=== PATIENT | female | born 1975 | race Caucasian/White ===

== ENCOUNTER 2018-12-15 10:37 | Inpatient (IN) | payer SELFPAY ==
[2018-12-15 11:08] LABS: BASOPHILS 0.1 % (0-2); EOSINOPHILS 2.4 % (0-7); HEMATOCRIT 36.8 % (36.0-48.0); IMMATURE GRANULOCYTES 0.5 % (0-5); LYMPHOCYTES 15.3 % (15-50); MCH 34.1 pg (26.0-34.0); MCHC 32.6 g/dL (31.0-37.0); MCV 104.5 fL (80.0-100.0); MONOCYTES 5.1 % (2-11); NEUTROPHILS 76.6 % (40-80); PLATELET COUNT 284 10x3/uL (130-400); RBC 3.52 10x6/uL (4.00-5.40); RDW 16.9 % (11.5-14.5); WBC 16.2 10x3/uL (4.8-10.8)
[2018-12-15 11:20] LABS: ALBUMIN 2.9 g/dL (3.4-5.0); ALKALINE PHOSPHATASE 134 U/L (46-116); ALT (SGPT) 57 U/L (10-68); BILIRUBIN - TOTAL 0.48 mg/dL (0.2-1.3); CALC OSMOLALITY 276 mosm/kg (275-300); CALCIUM 8.7 mg/dL (8.5-10.1); CARBON DIOXIDE 31.3 mmol/L (21.0-32.0); CHLORIDE - SERUM 103 mmol/L (98-107); CREATININE - SERUM 0.6 mg/dL (0.6-1.3); GLUCOSE 107 mg/dL (74-106); POTASSIUM - SERUM 3.6 mmol/L (3.5-5.1); PROTEIN - SERUM 7.4 g/dL (6.4-8.2); SODIUM 140 mmol/L (136-145); UREA NITROGEN 6 mg/dL (7-18); eGFR NON AFRICAN AMERICAN > 90 mL/min (90-120)
[2018-12-15 16:52] VITALS: BP 147/85
[2018-12-15 18:35] LABS: % SATURATION 10 % (15-55); IRON 39 ug/dl (35-150); TOTAL IRON BIND CAPACITY 372 ug/dl (260-445); UNSAT IRON BIND CAPACITY 333 ug/dl (150-375)
[2018-12-15 21:08] VITALS: BP 164/95
[2018-12-15 23:59] LABS: COLOR YELLOW (YELLOW)
[2018-12-16] VITALS (12 sets, daily range): BP systolic 113–153; BP diastolic 61–94; BMI 48.4
[2018-12-16] LABS: APPEARANCE CLEAR (CLEAR); BILIRUBIN NEGATIVE (NEGATIVE); GLUCOSE NEGATIVE (NEGATIVE); KETONE NEGATIVE (NEGATIVE); NITRITE NEGATIVE (NEGATIVE); PROTEIN NEGATIVE (NEGATIVE); UROBILINOGEN NORMAL (NORMAL)
[2018-12-16 04:18] LABS: BASOPHILS 0.2 % (0-2); EOSINOPHILS 3.4 % (0-7); HEMATOCRIT 33.4 % (36.0-48.0); HEMOGLOBIN 10.6 g/dL (12-16); IMMATURE GRANULOCYTES 0.4 % (0-5); LYMPHOCYTES 13.2 % (15-50); MCHC 31.7 g/dL (31.0-37.0); MEAN PLATELET VOLUME 9.7 fL (7.4-10.4); MONOCYTES 5.3 % (2-11); NEUTROPHILS 77.5 % (40-80); PLATELET COUNT 262 10x3/uL (130-400); RBC 3.12 10x6/uL (4.00-5.40); RDW 17.2 % (11.5-14.5); WBC 12.9 10x3/uL (4.8-10.8)
[2018-12-16 04:19] LABS: MCV 107.1 fL (80.0-100.0)
[2018-12-16 04:26] LABS: CALC OSMOLALITY 278 mosm/kg (275-300); CALCIUM 7.5 mg/dL (8.5-10.1); CHLORIDE - SERUM 106 mmol/L (98-107); CREATININE - SERUM 0.7 mg/dL (0.6-1.3); GLUCOSE 102 mg/dL (74-106); POTASSIUM - SERUM 3.7 mmol/L (3.5-5.1); SODIUM 141 mmol/L (136-145); UREA NITROGEN 6 mg/dL (7-18); eGFR NON AFRICAN AMERICAN > 90 mL/min (90-120)
--- NOTE | 2018-12-16 14:04 | OP ---
PATIENT NAME: ELIAZAR CALVO MEDICAL RECORD: [id number] :[birth year] LOCATION:[id number] ADMISSION DATE:12/15/18 SURGEON: BASHIR BENAVIDEZ MD DATE OF OPERATION: 12/16/2018 PREOPERATIVE DIAGNOSES: 1. Right axillary abscess. 2. Morbid obesity. POSTOPERATIVE DIAGNOSES: 1. Right axillary abscess. 2. Morbid obesity. PROCEDURE: I&D of the right axilla. SURGEON: Bashir Benavidez MD REPORT OF PROCEDURE: The patient's right axilla and upper extremity were prepped and draped in sterile fashion. A longitudinal incision was made over an area of fluctuance and there was immediately a discharge of purulent material. Cultures were taken times 2. I then penetrated this wound with my finger and we were able to find a track that ran deep towards the fascia and over towards an opening in the axilla and also another area that went inferiorly towards the skin. Both these areas were finger dissected and irrigated out with peroxide and saline solution. At the conclusion of the case, the return of fluid was clear with no signs of any further purulence. We then packed the wound with half inch packing strips that were dipped in peroxide. The wound was then dressed with 4 x 4s and tape. COMPLICATIONS: None. CONDITION: Stable. ANESTHESIA: General endotracheal. BLOOD LOSS: 30 mL. TRANSINT:[id number] Voice Confirmation ID: [id number] DOCUMENT ID: [id number] BASHIR BENAVIDEZ MD at 1404 CC: [id number] DICTATION DATE: 12/16/18 1108 BATTALION CHIEF: 12/16/18 1311 ADM IN [place] [id number] [place] [address]
[2018-12-17] VITALS: BP 138/71
[2018-12-17 03:00] VITALS: BP 131/63
[2018-12-17 08:43] VITALS: BP 142/75
[2018-12-17 13:50] VITALS: BP 145/82
[2018-12-17 14:27] LABS: BASOPHILS 0.2 % (0-2); EOSINOPHILS 1.1 % (0-7); HEMATOCRIT 32.9 % (36.0-48.0); HEMOGLOBIN 10.4 g/dL (12-16); IMMATURE GRANULOCYTES 0.8 % (0-5); LYMPHOCYTES 18.3 % (15-50); MCH 34.1 pg (26.0-34.0); MCHC 31.6 g/dL (31.0-37.0); MCV 107.9 fL (80.0-100.0); MONOCYTES 5.4 % (2-11); NEUTROPHILS 74.2 % (40-80); PLATELET COUNT 265 10x3/uL (130-400); RBC 3.05 10x6/uL (4.00-5.40); WBC 13.1 10x3/uL (4.8-10.8)
[2018-12-17 14:34] LABS: CALC OSMOLALITY 281 mosm/kg (275-300); CALCIUM 7.3 mg/dL (8.5-10.1); CARBON DIOXIDE 27.7 mmol/L (21.0-32.0); CHLORIDE - SERUM 105 mmol/L (98-107); CREATININE - SERUM 0.7 mg/dL (0.6-1.3); GLUCOSE 110 mg/dL (74-106); POTASSIUM - SERUM 3.2 mmol/L (3.5-5.1); SODIUM 142 mmol/L (136-145); eGFR NON AFRICAN AMERICAN > 90 mL/min (90-120)
[2018-12-17 14:35] LABS: UREA NITROGEN 8 mg/dL (7-18)
[2018-12-17 17:55] VITALS: BP 149/72
[2018-12-17 20:00] VITALS: BP 163/87
[2018-12-18] VITALS: BP 159/73
[2018-12-18 03:00] VITALS: BP 153/84
[2018-12-18 05:35] LABS: BASOPHILS 0.2 % (0-2); EOSINOPHILS 2.1 % (0-7); HEMATOCRIT 32.5 % (36.0-48.0); HEMOGLOBIN 10.2 g/dL (12-16); IMMATURE GRANULOCYTES 1.2 % (0-5); LYMPHOCYTES 20.5 % (15-50); MCHC 31.4 g/dL (31.0-37.0); MCV 108.3 fL (80.0-100.0); MEAN PLATELET VOLUME 9.7 fL (7.4-10.4); MONOCYTES 5.7 % (2-11); NEUTROPHILS 70.3 % (40-80); PLATELET COUNT 269 10x3/uL (130-400); RDW 17.4 % (11.5-14.5); WBC 11.8 10x3/uL (4.8-10.8)
[2018-12-18 05:45] LABS: CALC OSMOLALITY 277 mosm/kg (275-300); CALCIUM 7.3 mg/dL (8.5-10.1); CARBON DIOXIDE 27.8 mmol/L (21.0-32.0); CHLORIDE - SERUM 104 mmol/L (98-107); CREATININE - SERUM 0.6 mg/dL (0.6-1.3); GLUCOSE 122 mg/dL (74-106); POTASSIUM - SERUM 3.1 mmol/L (3.5-5.1); SODIUM 140 mmol/L (136-145); UREA NITROGEN 8 mg/dL (7-18); eGFR NON AFRICAN AMERICAN > 90 mL/min (90-120)
[2018-12-18 09:08] VITALS: BP 170/82
[2018-12-18 12:18] VITALS: BP 154/78
[2018-12-18 17:06] VITALS: BP 177/77
[2018-12-18 20:00] VITALS: BP 183/101
[2018-12-19] VITALS: BP 149/61
[2018-12-19 03:00] VITALS: BP 163/86
[2018-12-19 06:50] LABS: BASOPHILS 0.2 % (0-2); EOSINOPHILS 2.2 % (0-7); HEMATOCRIT 35.2 % (36.0-48.0); HEMOGLOBIN 11.4 g/dL (12-16); IMMATURE GRANULOCYTES 1.5 % (0-5); LYMPHOCYTES 18.2 % (15-50); MCH 34.8 pg (26.0-34.0); MCHC 32.4 g/dL (31.0-37.0); MCV 107.3 fL (80.0-100.0); MEAN PLATELET VOLUME 9.8 fL (7.4-10.4); MONOCYTES 6.5 % (2-11); NEUTROPHILS 71.4 % (40-80); PLATELET COUNT 320 10x3/uL (130-400); RBC 3.28 10x6/uL (4.00-5.40); RDW 17.5 % (11.5-14.5); WBC 11.5 10x3/uL (4.8-10.8)
[2018-12-19 07:00] LABS: CALC OSMOLALITY 280 mosm/kg (275-300); CALCIUM 7.6 mg/dL (8.5-10.1); CARBON DIOXIDE 30.7 mmol/L (21.0-32.0); CHLORIDE - SERUM 104 mmol/L (98-107); CREATININE - SERUM 0.7 mg/dL (0.6-1.3); GLUCOSE 108 mg/dL (74-106); POTASSIUM - SERUM 3.4 mmol/L (3.5-5.1); SODIUM 142 mmol/L (136-145); UREA NITROGEN 5 mg/dL (7-18); eGFR NON AFRICAN AMERICAN > 90 mL/min (90-120)
[2018-12-19 13:17] VITALS: BP 152/84
[2018-12-19 21:01] VITALS: BP 172/94
[2018-12-20 01:05] VITALS: BP 134/80
[2018-12-20 06:40] LABS: CALC OSMOLALITY 279 mosm/kg (275-300); CALCIUM 7.6 mg/dL (8.5-10.1); CARBON DIOXIDE 25.7 mmol/L (21.0-32.0); CHLORIDE - SERUM 106 mmol/L (98-107); CREATININE - SERUM 0.6 mg/dL (0.6-1.3); GLUCOSE 112 mg/dL (74-106); POTASSIUM - SERUM 3.6 mmol/L (3.5-5.1); SODIUM 141 mmol/L (136-145); UREA NITROGEN 6 mg/dL (7-18); eGFR NON AFRICAN AMERICAN > 90 mL/min (90-120)
[2018-12-20 07:04] LABS: BASOPHILS 0.3 % (0-2); EOSINOPHILS 3.1 % (0-7); HEMATOCRIT 32.6 % (36.0-48.0); HEMOGLOBIN 10.4 g/dL (12-16); LYMPHOCYTES 17.1 % (15-50); MCH 34.2 pg (26.0-34.0); MCHC 31.9 g/dL (31.0-37.0); MCV 107.2 fL (80.0-100.0); MEAN PLATELET VOLUME 10.1 fL (7.4-10.4); MONOCYTES 6.3 % (2-11); NEUTROPHILS 71.2 % (40-80); PLATELET COUNT 306 10x3/uL (130-400); RBC 3.04 10x6/uL (4.00-5.40); RDW 17.6 % (11.5-14.5); WBC 10.1 10x3/uL (4.8-10.8)
[2018-12-20 08:57] VITALS: BP 164/78
[2018-12-20 17:21] VITALS: BP 145/76
[2018-12-20 22:01] VITALS: BP 152/73
[2018-12-21 05:09] VITALS: BP 148/79
[2018-12-21 05:19] LABS: BASOPHILS 0.2 % (0-2); EOSINOPHILS 3.3 % (0-7); HEMATOCRIT 33.6 % (36.0-48.0); HEMOGLOBIN 10.5 g/dL (12-16); IMMATURE GRANULOCYTES 2.6 % (0-5); LYMPHOCYTES 15.2 % (15-50); MCH 33.7 pg (26.0-34.0); MCHC 31.3 g/dL (31.0-37.0); MCV 107.7 fL (80.0-100.0); MEAN PLATELET VOLUME 9.9 fL (7.4-10.4); MONOCYTES 6.2 % (2-11); NEUTROPHILS 72.5 % (40-80); PLATELET COUNT 332 10x3/uL (130-400); RBC 3.12 10x6/uL (4.00-5.40); RDW 17.9 % (11.5-14.5); WBC 10.7 10x3/uL (4.8-10.8)
[2018-12-21 05:35] LABS: CALC OSMOLALITY 280 mosm/kg (275-300); CALCIUM 8.1 mg/dL (8.5-10.1); CARBON DIOXIDE 28.6 mmol/L (21.0-32.0); CHLORIDE - SERUM 107 mmol/L (98-107); CREATININE - SERUM 0.6 mg/dL (0.6-1.3); GLUCOSE 102 mg/dL (74-106); POTASSIUM - SERUM 3.5 mmol/L (3.5-5.1); SODIUM 142 mmol/L (136-145); UREA NITROGEN 7 mg/dL (7-18); eGFR NON AFRICAN AMERICAN > 90 mL/min (90-120)
[2018-12-21 09:23] VITALS: BP 176/18
[2018-12-21] MEDS ORDERED: NORVASC10 MG PO (11:49)
[2018-12-21] MEDS ORDERED: COLACE100 MG PO (11:50)
[2018-12-21] MEDS ORDERED: DOXYCYCLINE HY100 M2 PO (11:50)
[2018-12-21] MEDS ORDERED: FLORAJEN3 CAPS460 MG PO (11:50)
[2018-12-21] MEDS ORDERED: NORCO-7.5 PO (11:51)
--- NOTE | 2018-12-21 12:42 | MORECARE ---
CASE MANAGEMENT DISCHARGE SUMMARY PATIENT: ELIAZAR CALVO UNIT: [id number] ADM DATE: 12/15/18 AGE: 43 : [birth year] SEX: F ROOM/BED: D.2205 AUTHOR: MATTI RIVERO PHYSICIAN: REFERRING PHYSICIAN: NORY HERNANDEZ MD DATE OF SERVICE: 12/21/18 Discharge Plan Patient Name: ELIAZAR CALVO Facility: [facility]:[place] : 1975 Planned Disposition: Home Anticipated Discharge Date: Discharge Date: Expected LOS: Initial Reviewer: [id number] Initial Review Date: 12/15/2018 Generated: 12/21/18 1:42 pm Comments DCP- Discharge Planning Updated by [email or web address]: Bee Hameed on 12/21/18 11:[address] ATTEMPTED TO SEE PATIENT FOR DISCHARGE NEEDS, PATIENT IS NOT IN HER ROOM TO ASSESS. I HAVE ATTEMPTED TO SEE HER MULTIPLE TIMES WITHOUT SUCCESS. NURSES STATE SHE STAY OUTSIDE SMOKING MOST OF THE TIME. Patient Name: ELIAZAR CALVO Page [id number] at 1242 All edits/amendments must be made on the electronic document DICTATION DATE: 12/21/181240 ACCOUNT MANAGEMENT SPECIALIST: WENDY 12/21/18 124 RPT#: [id number] DC DATE: STATUS: ADM IN [facility] [address] [place] [address] END OF REPORT
--- NOTE | 2018-12-22 16:15 | MORECARE ---
CASE MANAGEMENT DISCHARGE SUMMARY PATIENT: ELIAZAR CALVO UNIT: [id number] ADM DATE: 12/15/18 AGE: 43 : [birth year] SEX: F ROOM/BED: D.2205 AUTHOR: MATTI RIVERO PHYSICIAN: REFERRING PHYSICIAN: NORY HERNANDEZ MD DATE OF SERVICE: 12/22/18 Discharge Plan Patient Name: ELIAZAR CALVO Facility: [facility]:[place] : 1975 Planned Disposition: Home Anticipated Discharge Date: Discharge Date: 12/21/2018 Expected LOS: Initial Reviewer: [email or web address] Initial Review Date: 12/15/2018 Generated: 12/22/18 5:15 pm Comments DCP- Discharge Planning Updated by [email or web address]: Bee Hameed on 12/21/18 11:[address] ATTEMPTED TO SEE PATIENT FOR DISCHARGE NEEDS, PATIENT IS NOT IN HER ROOM TO ASSESS. I HAVE ATTEMPTED TO SEE HER MULTIPLE TIMES WITHOUT SUCCESS. NURSES STATE SHE STAY OUTSIDE SMOKING MOST OF THE TIME. Last DP export: 12/21/18 11:42 a Patient Name: ELIAZAR CALVO Page [id number] at 1615 All edits/amendments must be made on the electronic document DICTATION DATE: 12/22/18 161 YOUTH DIRECTOR: WENDY 12/22/18 161 RPT#: [id number] DC DATE:12/21/18 STATUS: DIS IN [facility] [address] [place] [address] END OF REPORT
== END 2018-12-21 16:01 | disposition home or self-care (01) | DRG 854 ==
LOC: D.ER 10:37 → D.MS 13:42
PROVIDERS: Family Medicine; Surgery; ADMIT Internal Medicine Nephrology
PROC: 0J9D0ZZ Drainage of Right Upper Arm Subcutaneous Tissue and Fascia, Open Approach (ICD-10-PCS; principal; 2018-12-16 12:00)
PROC: 05HY33Z Insertion of Infusion Device into Upper Vein, Percutaneous Approach (ICD-10-PCS; 2018-12-19)
DX: A41.9 Sepsis, unspecified organism (principal); L03.113 Cellulitis of right upper limb; Z68.42 Body mass index [BMI] 45.0-49.9, adult; L02.411 Cutaneous abscess of right axilla; D64.9 Anemia, unspecified; I10 Essential (primary) hypertension; E66.01 Morbid (severe) obesity due to excess calories